=== PATIENT | female | born 1940 | race Two or more races ===

== ENCOUNTER 2024-11-28 19:55 | Inpatient (IN) | payer MEDICARE, OTHER ==
[~2024-11-28] VITALS: Ht 162.6 cm; Wt 48.1 kg
[2024-11-28 21:19] LABS: PLATELET COUNT (AUTO) 155 K/uL (150-450); RED BLOOD CELL COUNT(AUTO) 4.01 MIL/uL (4.0-5.2); RED CELL DISTRIBUTION WIDTH 14.4 % (11.5-15.0); WHITE BLOOD COUNT (AUTO) 6.1 K/uL (4.3-11.0)
[2024-11-28 21:34] LABS: ASPARTATE AMINOTRANSFERASE 13.0 U/L (15-37); CALCIUM, SERUM 8.7 mg/dL (8.5-10.1); CREATININE 1.3 mg/dL (0.6-1.3); SODIUM SERUM 134.0 mmol/L (136-145); TOTAL PROTEIN, SERUM 6.5 g/dL (6.4-8.2); UREA NITROGEN, BLOOD 30.0 mg/dL (7-18)
[2024-11-28 22:31] LABS: AMPHETAMINE, URINE NEGATIVE (NEGATIVE); BARBITURATE, URINE NEGATIVE (NEGATIVE); BENZODIAZEPINE, URINE NEGATIVE (NEGATIVE); CANNABINOID, URINE NEGATIVE (NEGATIVE); COCCAINE, URINE NEGATIVE (NEGATIVE); OPIATE, URINE NEGATIVE (NEGATIVE)
[2024-11-28 22:36] LABS: APPEARANCE,URINE CLOUDY (CLEAR); BLOOD, URINE TRACE-INTA Ery/uL (NEGATIVE); LEUKOCYTE ESTERASE ,URINE 3+ (NEGATIVE); NITRITE, URINE POSITIVE (NEGATIVE); UGLUCOSE 3+ mg/dL (NEGATIVE)
[2024-11-28 22:48] LABS: ADD URINE CULTURE YES; SQUAMOUS EPITHELIAL CELL,UR Few /HPF (None Seen); YEAST,URINE None Seen /HPF (None Seen)
[2024-11-28] MEDS ORDERED: CEFTRIAXONE 1GM BAG (ER ONLY) 50 ML IV ONE (22:50)
[2024-11-28] MEDS: CEFTRIAXONE 1 G in IV D5W 50 ML IV ONE (23:02)
[2024-11-28] MEDS: IV NS 0.9% 1,000 ML BAG IV ONE (23:02)
[2024-11-29] MEDS ORDERED: MAGN400O21 PO (01:04)
[2024-11-29 01:41] VITALS: BP 132/73; TEMP 97.9; O2SAT 98
[2024-11-29] MEDS ORDERED: DEXTROSE 50%-WATER 50 ML DISP.SYRIN IV PRN (02:00)
[2024-11-29] MEDS ORDERED: ACETAMINOPHEN 325 MG TABLET PO PRN (02:00)
[2024-11-29] MEDS ORDERED: MAGNESIUM HYDROXIDE 30 ML UDC PO PRN ×2 (02:00→19:00)
[2024-11-29] MEDS ORDERED: LORAZEPAM 0.5 MG TABLET PO PRN ×2 (02:00)
[2024-11-29] MEDS ORDERED: MAG HYDROX/AL HYDROX/SIMETH 30 ML UDC PO PRN (02:00)
[2024-11-29] MEDS ORDERED: BISACODYL SUPP (10 MG) 10 MG/SUPP.RECT SUPP.RECT RC PRN (02:00)
[2024-11-29] MEDS ORDERED: TEMAZEPAM 7.5 MG CAPSULE PO PRN ×2 (02:00)
[2024-11-29] MEDS: BLOOD SUGAR DIAGNOSTIC 1 EACH STRIP IN ONE (02:23)
[2024-11-29] MEDS: OLANZAPINE 10 MG VIAL IM ONE (03:34)
[2024-11-29] MEDS ORDERED: QUETIAPINE FUMARATE 25 MG TABLET PO PRN (05:30)
[2024-11-29] MEDS ORDERED: ZOLPIDEM TARTRATE 5 MG TABLET PO PRN (05:30)
[2024-11-29] MEDS: INSULIN REGULAR, HUMAN 100 UNIT/ML 3 ML VIAL SQ PRN (06:42)
[2024-11-29] MEDS: BLOOD SUGAR DIAGNOSTIC 1 EACH STRIP IN SCH (06:42)
[2024-11-29 08:00] VITALS: BP 126/54; TEMP 97.8; O2SAT 96
[2024-11-29] MEDS ORDERED: IBUP-1955 PO (08:04)
[2024-11-29] MEDS: CIPROFLOXACIN HCL 500 MG TABLET PO SCH (09:00)
[2024-11-29] MEDS: DIVALPROEX SODIUM 125 MG TABLET.DR PO SCH (13:00)
[2024-11-29] MEDS: QUETIAPINE FUMARATE 25 MG TABLET PO PRN (14:27)
[2024-11-29 19:57] VITALS: BP 121/57; TEMP 97.8; O2SAT 98
[2024-11-29] MEDS: QUETIAPINE FUMARATE 25 MG TABLET PO SCH (21:00)
[2024-11-30 08:00] VITALS: BP 121/65; TEMP 98.8; O2SAT 98
[2024-11-30 16:00] VITALS: BP 129/65; TEMP 98.2; O2SAT 98
[2024-11-30 20:00] VITALS: BP 126/67; TEMP 98.1; O2SAT 97
[2024-12-01 08:00] VITALS: BP 123/60; TEMP 98.2; O2SAT 98
[2024-12-01 16:00] VITALS: BP 128/66; TEMP 98.8; O2SAT 98
[2024-12-02 08:00] VITALS: BP 120/81; TEMP 97.9; O2SAT 98
[2024-12-02] MEDS: FOSFOMYCIN TROMETHAMINE 3 G/PKT PACKET PO ONE (12:34)
[2024-12-02 16:00] VITALS: BP 122/91; TEMP 98.2; O2SAT 96
[2024-12-03 08:00] VITALS: BP 117/60; TEMP 98.1; O2SAT 99
[2024-12-03 16:00] VITALS: BP 129/65; TEMP 98.8; O2SAT 99
[2024-12-03] MEDS: FOSFOMYCIN TROMETHAMINE 3 G/PKT PACKET PO ONE (17:49)
[2024-12-04 07:53] VITALS: BP 122/63; TEMP 98; O2SAT 98
[2024-12-04 16:10] VITALS: BP 137/72; TEMP 98.1; O2SAT 98
[2024-12-05 07:50] VITALS: BP 131/63; TEMP 98.6; O2SAT 98
[2024-12-05] MEDS ORDERED: OLANZAPINE 10 MG VIAL IM PRN (11:00)
[2024-12-05] MEDS: QUETIAPINE FUMARATE 25 MG TABLET PO SCH (11:00)
[2024-12-05 15:04] VITALS: BP 139/69; TEMP 98.1; O2SAT 98
[2024-12-05] MEDS: OLANZAPINE 10 MG VIAL IM PRN (15:13)
[2024-12-05 19:41] VITALS: BP 131/61; TEMP 98.2; O2SAT 98
[2024-12-06 08:00] VITALS: BP 121/63; TEMP 97.8; O2SAT 98
[2024-12-06 16:49] VITALS: BP 138/76; TEMP 97; O2SAT 97
[2024-12-06 20:00] VITALS: BP 142/93; TEMP 96; O2SAT 96
[2024-12-07 08:13] VITALS: BP 116/61; TEMP 97.7; O2SAT 96
[2024-12-07 16:00] VITALS: BP 131/68; TEMP 97.7; O2SAT 99
[2024-12-07] MEDS: QUETIAPINE FUMARATE 25 MG TABLET PO SCH (21:00)
[2024-12-07] MEDS: OLANZAPINE 10 MG VIAL IM PRN (21:45)
[2024-12-08 08:00] VITALS: BP 124/61; TEMP 97.8; O2SAT 96
[2024-12-08] MEDS: QUETIAPINE FUMARATE 25 MG TABLET PO SCH (09:00)
[2024-12-08 16:00] VITALS: BP 131/55; TEMP 98.3; O2SAT 98
[2024-12-08 22:24] VITALS: BP 129/72; TEMP 98; O2SAT 98
[2024-12-09 08:00] VITALS: BP 108/68; TEMP 97.7; O2SAT 95
[2024-12-09 16:07] VITALS: BP 120/58; TEMP 98; O2SAT 96
[2024-12-09 20:32] VITALS: BP_SYST 117; BP_SYST 118; BP_DIAS 56; BP_DIAS 65; TEMP 98.1; O2SAT 96
[2024-12-10 08:00] VITALS: BP 122/66; TEMP 97.8; O2SAT 98
[2024-12-10 20:09] VITALS: BP 124/60; TEMP 97.9; O2SAT 97
[2024-12-11 08:00] VITALS: BP 129/74; TEMP 98; O2SAT 98
[2024-12-11 08:19] VITALS: BP 129/74; TEMP 98; O2SAT 98
[2024-12-11 15:26] VITALS: BP 116/77; TEMP 97.8; O2SAT 97
[2024-12-11 20:43] VITALS: BP 122/60; TEMP 97.9; O2SAT 98
[2024-12-12 08:15] VITALS: BP 108/59; TEMP 97.7; O2SAT 98
[2024-12-12 15:41] VITALS: BP_SYST 60; TEMP 97.8; O2SAT 98
[2024-12-12 19:52] VITALS: BP 121/56; TEMP 97.8; O2SAT 98
[2024-12-12] MEDS: DIVALPROEX SODIUM 125 MG TABLET.DR PO SCH (20:42)
[2024-12-12] MEDS: OLANZAPINE 10 MG VIAL IM PRN ×2 (21:16)
[2024-12-13 08:00] VITALS: BP 108/61; TEMP 97.1; O2SAT 98
[2024-12-13 16:10] VITALS: BP 127/65; TEMP 97.7; O2SAT 98
[2024-12-13 19:49] VITALS: BP 125/59; TEMP 97.7; O2SAT 98
[2024-12-14 08:00] VITALS: BP 122/57; TEMP 97.8; O2SAT 97
[2024-12-14 16:00] VITALS: BP 124/65; TEMP 97.8; O2SAT 98
[2024-12-14 19:57] VITALS: BP 123/57; TEMP 97.8; O2SAT 98
[2024-12-15 08:00] VITALS: BP 107/72; TEMP 97.8; O2SAT 97
[2024-12-15] MEDS: QUETIAPINE FUMARATE 25 MG TABLET PO SCH (21:29)
[2024-12-16 08:00] VITALS: BP 113/58; TEMP 97.7; O2SAT 99
[2024-12-16 16:00] VITALS: BP 116/53; TEMP 97.7; O2SAT 94
[2024-12-16 20:18] VITALS: BP 122/65; TEMP 98.2; O2SAT 96
[2024-12-16] MEDS: DIVALPROEX SODIUM 250 MG TABLET.DR PO SCH (21:00)
[2024-12-16] MEDS: OLANZAPINE 10 MG VIAL IM PRN (21:57)
[2024-12-17 08:00] VITALS: BP 112/63; TEMP 98.9; O2SAT 100
== END 2024-12-17 13:20 | DRG 885 ==
LOC: ER 19:57 → GPS 11-29 00:24
PROVIDERS: ADMIT Psychiatry & Neurology Psychiatry; ATTEND Nurse Practitioner Acute Care
DX: F29 Unspecified psychosis not due to a substance or known physiological condition (principal); N18.9 Chronic kidney disease, unspecified; E11.65 Type 2 diabetes mellitus with hyperglycemia; N39.0 Urinary tract infection, site not specified; R64 Cachexia; E44.0 Moderate protein-calorie malnutrition; F03.93 Unspecified dementia, unspecified severity, with mood disturbance; F03.92 Unspecified dementia, unspecified severity, with psychotic disturbance; Z68.1 Body mass index [BMI] 19.9 or less, adult; Z16.12 Extended spectrum beta lactamase (ESBL) resistance; G93.40 Encephalopathy, unspecified; F03.94 Unspecified dementia, unspecified severity, with anxiety; E78.5 Hyperlipidemia, unspecified; F03.90 Unspecified dementia, unspecified severity, without behavioral disturbance, psychotic disturbance, mood disturbance, and anxiety; I12.9 Hypertensive chronic kidney disease with stage 1 through stage 4 chronic kidney disease, or unspecified chronic kidney disease; B96.20 Unspecified Escherichia coli [E. coli] as the cause of diseases classified elsewhere; E03.9 Hypothyroidism, unspecified; M19.90 Unspecified osteoarthritis, unspecified site; Z20.822 Contact with and (suspected) exposure to COVID-19; Z73.6 Limitation of activities due to disability; F39 Unspecified mood [affective] disorder; F20.9 Schizophrenia, unspecified; M62.50 Muscle wasting and atrophy, not elsewhere classified, unspecified site; E11.22 Type 2 diabetes mellitus with diabetic chronic kidney disease; Z91.199 Patient's noncompliance with other medical treatment and regimen due to unspecified reason
CPT/HCPCS: 36415; 80048-TC; 80076-TC; 81001; 84484-TC; 85025-TC; 87081-TC; 87086-TC; 87186-TC; 97112-TC; 97116-TC; 97530-TC; 98960; J0696; J1815; J3490; J7060